=== PATIENT | female | born 1945 | race Caucasian/White ===

== ENCOUNTER 2022-04-07 06:37 | Day surgery (SDC) | payer MEDICARE, OTHER ==
[~2022-04-07] VITALS: Ht 162.6 cm; Wt 73.0 kg
[~2022-04-07 06:37] MED LIST: ASPI81CH PO; LOSA25 PO
[2022-04-07] MEDS ORDERED: Zoloft25 MG PO (06:58)
--- NOTE | 2022-04-07 08:49 | NUR ---
0845 PATIENT RETURNED FROM THE [facility] VIA BED, PLACED ON THE MONITOR. TR BAND IN PLACE AND SBAR RECEIVED FROM ZULY CONDE. NO HEAMTOMA, NO BLEEDING NOTED FROM THE RIGHT RADIAL. CALL LIGHT IN REACH. VVS. BRADYCARDIA NOTED.
--- NOTE | 2022-04-07 10:19 | NUR ---
1000 DAUGHTER AT THE BEDSIDE AND BREAKFAST TRAY SERVED. PATIENT SITTING UP IN THE BED. VVS. TR BAND STABLE. NO BLEEDING NO HEMATOMA NOTED.
--- NOTE | 2022-04-07 10:43 | NUR ---
BEGAN TAKING AIR FROM THE TR BAND. NO BLEEIDNG NOTED. DAUGHTER AT THE BEDSIDE.
--- NOTE | 2022-04-07 11:39 | NUR ---
PATIENT TR BAND OFF AND SITE CLEANED. CLOTH DOT PLACED. NO HEAMTOMA, NO BLEEDING. OFF MONITOR. UP AND DRESSED, TO THE [id number]. ALL BELONGINGS GATHERED. DAUGHTER AT THE BEDSIDE. REVIEWED DISCHARGE INSTRUCTIONS. ALL QUESTIONS ANSWERED.
--- NOTE | 2022-04-07 12:12 | NUR ---
PIV REMOVED AND PATIENT DISCHARGED HOME VIA WHEELCHAIR.
== END 2022-04-07 12:00 | disposition home or self-care (01) ==
LOC: MHTC 06:37
DX: I08.3 Combined rheumatic disorders of mitral, aortic and tricuspid valves (principal); I77.810 Thoracic aortic ectasia; I49.5 Sick sinus syndrome; I49.3 Ventricular premature depolarization; M31.6 Other giant cell arteritis
CPT/HCPCS: 93458; 99152; 99153; A9270; C1769; C1887; C1894; J1644; J2250; J3010; J7030; J7050; Q9967

== ENCOUNTER 2023-01-05 03:39 | Day surgery (SDC) | payer MEDICARE, OTHER ==
[~2023-01-05] VITALS: Wt 75.1 kg
[~2023-01-05 03:39] MED LIST changes: +Zoloft25 MG PO
[2023-01-05 10:17] VITALS: BP 118/98
[2023-01-05 11:24] LABS: BASOPHILS ABSOLUTE AUTO 0.04 K/mm3 (0.00-0.23); BASOPHILS PERCENT AUTO 0 % (0-2); EOSINOPHILS ABSOLUTE AUTO 0.11 K/mm3 (0.00-0.68); EOSINOPHILS PERCENT AUTO 1 % (0-6); Hematocrit 41.5 % (33.0-51.0); Hemoglobin 13.9 g/dL (11.5-16.0); IMMATURE GRAN ABSOLUTE AUTO 0.04 K/mm3 (0.00-0.10); IMMATURE GRAN PERCENT AUTO 0 % (0-1); LYMPHOCYTES PERCENT AUTO 36 % (21-46); MONOCYTES ABSOLUTE AUTO 0.84 K/mm3 (0.16-1.47); MONOCYTES PERCENT AUTO 9 % (4-13); Mean Corpuscular HGB 30.9 pg (26.0-34.0); Mean Corpuscular HGB Conc 33.5 g/dL (31.5-36.5); Mean Corpuscular Volume 92 fL (80-100); Mean Platelet Volume 10.9 fL (9.1-12.4); NEUTROPHILS ABSOLUTE AUTO 5.34 K/mm3 (1.96-9.15); NEUTROPHILS PERCENT AUTO 54 % (41-73); Platelet Count 220 K/mm3 (150-400); RDW Coefficient Variation 14.2 % (11.7-14.2); RDW Standard Deviation 48.4 fL (35.1-46.3); White Blood Cell Count 9.87 K/mm3 (4.00-11.30)
[2023-01-05 11:45] LABS: Alanine Aminotransfer (ALT/SGP 25 U/L (12-78); Albumin, Blood 3.5 g/dL (3.4-5.0); Albumin/Globulin Ratio 1.2 (0.8-1.8); Alk Phos 49 U/L (50-136); Anion Gap 7 mmol/L (6-16); Aspartate Aminotrans (AST/SGOT 22 U/L (12-37); Bilirubin, Total 0.5 mg/dL (0.1-1.0); Blood Urea Nitrogen 32 mg/dL (8-24); Bun/Creatinine Ratio 29.9 (12.0-20.0); C-REACTIVE PROTEIN, EXT RANGE <0.290 mg/dL (0.000-0.300); CO2, Blood 22 mmol/L (21-32); Chloride, Blood 112 mmol/L (98-108); Creatinine, Blood 1.07 mg/dL (0.40-1.00); Glomerular Filtration Rate 53 (60-); Glucose, Blood 89 mg/dL (70-99); Potassium, Blood 3.7 mmol/L (3.5-5.5); Sodium, Blood 141 mmol/L (136-145); Total Protein, Blood 6.5 g/dL (6.4-8.2)
[2023-01-05 11:53] VITALS: BP 136/75
== END 2023-01-05 11:55 | disposition home or self-care (01) ==
LOC: ATC 03:39
PROVIDERS: Internal Medicine Rheumatology
DX: M31.6 Other giant cell arteritis (principal); Z79.899 Other long term (current) drug therapy
CPT/HCPCS: 80053; 85025; 86140; 96365; J3262

== ENCOUNTER 2023-02-02 01:08 | Day surgery (SDC) | payer MEDICARE, OTHER ==
[~2023-02-02] VITALS: Wt 76.3 kg
[2023-02-02 10:00] VITALS: BP 131/89
== END 2023-02-02 11:18 | disposition home or self-care (01) ==
LOC: ATC 01:08
DX: M31.6 Other giant cell arteritis (principal); G45.9 Transient cerebral ischemic attack, unspecified
CPT/HCPCS: 96365; J3262

== ENCOUNTER 2023-03-02 02:30 | Day surgery (SDC) | payer MEDICARE, OTHER ==
[2023-03-02 09:42] VITALS: BP 144/91
== END 2023-03-02 11:01 | disposition home or self-care (01) ==
LOC: ATC 02:30
DX: M31.6 Other giant cell arteritis (principal); Z79.899 Other long term (current) drug therapy
CPT/HCPCS: 96365; J3262

== ENCOUNTER 2023-04-04 08:57 | Day surgery (SDC) | payer MEDICARE, OTHER ==
[~2023-04-04] VITALS: Wt 77.2 kg
[2023-04-04 10:15] VITALS: BP 138/85
[2023-04-04] MEDS ORDERED: PRED20 PO (11:01)
[2023-04-04 11:17] LABS: BASOPHILS ABSOLUTE AUTO 0.04 K/mm3 (0.00-0.23); BASOPHILS PERCENT AUTO 1 % (0-2); EOSINOPHILS ABSOLUTE AUTO 0.27 K/mm3 (0.00-0.68); EOSINOPHILS PERCENT AUTO 4 % (0-6); Hematocrit 42.7 % (33.0-51.0); Hemoglobin 14.6 g/dL (11.5-16.0); IMMATURE GRAN ABSOLUTE AUTO 0.04 K/mm3 (0.00-0.10); IMMATURE GRAN PERCENT AUTO 1 % (0-1); LYMPHOCYTES PERCENT AUTO 40 % (21-46); MONOCYTES ABSOLUTE AUTO 0.76 K/mm3 (0.16-1.47); MONOCYTES PERCENT AUTO 11 % (4-13); Mean Corpuscular HGB 31.8 pg (26.0-34.0); Mean Corpuscular HGB Conc 34.2 g/dL (31.5-36.5); Mean Corpuscular Volume 93 fL (80-100); Mean Platelet Volume 10.8 fL (9.1-12.4); NEUTROPHILS ABSOLUTE AUTO 2.98 K/mm3 (1.96-9.15); NEUTROPHILS PERCENT AUTO 44 % (41-73); Platelet Count 175 K/mm3 (150-400); RDW Coefficient Variation 14.3 % (11.7-14.2); RDW Standard Deviation 48.7 fL (35.1-46.3); Red Blood Cell Count 4.59 M/mm3 (3.80-5.20); White Blood Cell Count 6.79 K/mm3 (4.00-11.30)
[2023-04-04 11:52] LABS: Alanine Aminotransfer (ALT/SGP 39 U/L (12-78); Albumin, Blood 3.9 g/dL (3.4-5.0); Albumin/Globulin Ratio 1.6 (0.8-1.8); Alk Phos 46 U/L (50-136); Anion Gap 3 mmol/L (6-16); Aspartate Aminotrans (AST/SGOT 29 U/L (12-37); Bilirubin, Total 0.7 mg/dL (0.1-1.0); Blood Urea Nitrogen 30 mg/dL (8-24); Bun/Creatinine Ratio 27.3 (12.0-20.0); C-REACTIVE PROTEIN, EXT RANGE <0.290 mg/dL (0.000-0.300); CO2, Blood 25 mmol/L (21-32); Calcium, Blood 9.4 mg/dL (8.5-10.1); Chloride, Blood 111 mmol/L (98-108); Globulin, Blood 2.4 g/dL (2.2-4.0); Glomerular Filtration Rate 51 (60-); Glucose, Blood 99 mg/dL (70-99); Potassium, Blood 3.9 mmol/L (3.5-5.5); Sodium, Blood 139 mmol/L (136-145); Total Protein, Blood 6.3 g/dL (6.4-8.2)
== END 2023-04-04 12:35 | disposition home or self-care (01) ==
LOC: ATC 08:57
PROVIDERS: Internal Medicine Rheumatology
DX: M31.6 Other giant cell arteritis (principal); Z86.73 Personal history of transient ischemic attack (TIA), and cerebral infarction without residual deficits
CPT/HCPCS: 80053; 85025; 86140; 96365; J3262

== ENCOUNTER 2023-05-31 04:51 | Day surgery (SDC) | payer MEDICARE, OTHER ==
[~2023-05-31 04:51] MED LIST changes: +PRED20 PO
[2023-05-31 10:03] VITALS: BP 166/98
[2023-05-31] MEDS ORDERED: PRED5 PO (10:07)
[2023-05-31] MEDS ORDERED: METOPROLOL TART25 MG PO (10:07)
[2023-05-31] MEDS ORDERED: FOSAMAX70 MG PO (10:08)
[2023-05-31] MEDS ORDERED: ATOR40TA PO (10:09)
[2023-05-31] MEDS ORDERED: ACTEMRA IV (15:32)
== END 2023-05-31 11:31 | disposition home or self-care (01) ==
LOC: ATC 04:51
DX: M31.6 Other giant cell arteritis (principal); Z79.899 Other long term (current) drug therapy
CPT/HCPCS: 96365; J3262

== ENCOUNTER 2024-02-13 02:50 | Day surgery (SDC) | payer MEDICARE, OTHER ==
[~2024-02-13 02:50] MED LIST changes: +ACTEMRA IV; +ATOR40TA PO; +FOSAMAX70 MG PO; +METOPROLOL TART25 MG PO; +PRED5 PO
[2024-02-13] MEDS ORDERED: TOCILIZUMAB IV SCH (06:00)
[2024-02-13] MEDS ORDERED: NS IV SCH (06:00)
[2024-02-13 16:06] VITALS: BP 151/82
[2024-02-13 16:31] LABS: BASOPHILS ABSOLUTE AUTO 0.04 K/mm3 (0.00-0.23); BASOPHILS PERCENT AUTO 1 % (0-2); EOSINOPHILS ABSOLUTE AUTO 0.15 K/mm3 (0.00-0.68); EOSINOPHILS PERCENT AUTO 3 % (0-6); Hematocrit 39.2 % (33.0-51.0); Hemoglobin 13.2 g/dL (11.5-16.0); IMMATURE GRAN ABSOLUTE AUTO 0.01 K/mm3 (0.00-0.10); IMMATURE GRAN PERCENT AUTO 0 % (0-1); LYMPHOCYTES ABSOLUTE AUTO 1.32 K/mm3 (0.84-5.20); LYMPHOCYTES PERCENT AUTO 25 % (21-46); MONOCYTES ABSOLUTE AUTO 0.43 K/mm3 (0.16-1.47); MONOCYTES PERCENT AUTO 8 % (4-13); Mean Corpuscular HGB 31.9 pg (26.0-34.0); Mean Corpuscular HGB Conc 33.7 g/dL (31.5-36.5); Mean Corpuscular Volume 95 fL (80-100); Mean Platelet Volume 11.2 fL (9.1-12.4); NEUTROPHILS PERCENT AUTO 64 % (41-73); Platelet Count 160 K/mm3 (150-400); RDW Standard Deviation 45.1 fL (35.1-46.3); Red Blood Cell Count 4.14 M/mm3 (3.80-5.20); White Blood Cell Count 5.35 K/mm3 (4.00-11.30)
[2024-02-13 16:45] LABS: C-REACTIVE PROTEIN, EXT RANGE <0.290 mg/dL (0.000-0.300)
[2024-02-13 16:51] LABS: Alanine Aminotransfer (ALT/SGP 26 U/L (12-78); Albumin, Blood 3.9 g/dL (3.4-5.0); Albumin/Globulin Ratio 1.5 (0.8-1.8); Alk Phos 48 U/L (50-136); Anion Gap 10 mmol/L (3-11); Aspartate Aminotrans (AST/SGOT 31 U/L (12-37); Bilirubin, Total 0.7 mg/dL (0.1-1.0); Blood Urea Nitrogen 38 mg/dL (8-24); Bun/Creatinine Ratio 35.5 (12.0-20.0); CO2, Blood 24 mmol/L (21-32); Calcium, Blood 9.4 mg/dL (8.5-10.1); Chloride, Blood 109 mmol/L (98-108); Creatinine, Blood 1.07 mg/dL (0.40-1.00); Globulin, Blood 2.6 g/dL (2.2-4.0); Glomerular Filtration Rate 53 (60-); Glucose, Blood 129 mg/dL (70-99); Potassium, Blood 4.2 mmol/L (3.5-5.5); Sodium, Blood 139 mmol/L (136-145); Total Protein, Blood 6.5 g/dL (6.4-8.2)
== END 2024-02-13 17:32 | disposition home or self-care (01) ==
LOC: ATC 02:50
PROVIDERS: Internal Medicine Rheumatology
DX: M31.6 Other giant cell arteritis (principal)
CPT/HCPCS: 80053; 85025; 86140; 96365; J3262

== ENCOUNTER 2024-04-09 02:14 | Day surgery (SDC) | payer MEDICARE, OTHER ==
[~2024-04-09] VITALS: Wt 79.8 kg
[2024-04-09] MEDS ORDERED: TOCILIZUMAB IV SCH (06:00)
[2024-04-09] MEDS ORDERED: NS IV SCH (06:00)
[2024-04-09 14:29] VITALS: BP 145/90
== END 2024-04-09 16:15 | disposition home or self-care (01) ==
LOC: ATC 02:14
DX: M31.6 Other giant cell arteritis (principal); Z79.899 Other long term (current) drug therapy; Z79.82 Long term (current) use of aspirin; Z79.52 Long term (current) use of systemic steroids
CPT/HCPCS: 96365; J3262

== ENCOUNTER 2024-05-07 03:35 | Day surgery (SDC) | payer MEDICARE, OTHER ==
[~2024-05-07] VITALS: Wt 79.6 kg
[2024-05-07] MEDS ORDERED: TOCILIZUMAB IV SCH (06:00)
[2024-05-07] MEDS ORDERED: NS IV SCH (06:00)
[2024-05-07 14:37] VITALS: BP 168/77
[2024-05-07 15:05] LABS: BASOPHILS ABSOLUTE AUTO 0.02 K/mm3 (0.00-0.23); BASOPHILS PERCENT AUTO 0 % (0-2); EOSINOPHILS ABSOLUTE AUTO 0.06 K/mm3 (0.00-0.68); EOSINOPHILS PERCENT AUTO 1 % (0-6); Hematocrit 39.8 % (33.0-51.0); Hemoglobin 13.5 g/dL (11.5-16.0); IMMATURE GRAN ABSOLUTE AUTO 0.01 K/mm3 (0.00-0.10); IMMATURE GRAN PERCENT AUTO 0 % (0-1); LYMPHOCYTES ABSOLUTE AUTO 0.95 K/mm3 (0.84-5.20); LYMPHOCYTES PERCENT AUTO 19 % (21-46); MONOCYTES PERCENT AUTO 6 % (4-13); Mean Corpuscular HGB 32.1 pg (26.0-34.0); Mean Corpuscular HGB Conc 33.9 g/dL (31.5-36.5); Mean Corpuscular Volume 95 fL (80-100); Mean Platelet Volume 11.4 fL (9.1-12.4); NEUTROPHILS ABSOLUTE AUTO 3.65 K/mm3 (1.96-9.15); NEUTROPHILS PERCENT AUTO 73 % (41-73); Platelet Count 155 K/mm3 (150-400); RDW Coefficient Variation 12.8 % (11.7-14.2); RDW Standard Deviation 44.5 fL (35.1-46.3); Red Blood Cell Count 4.21 M/mm3 (3.80-5.20); White Blood Cell Count 4.99 K/mm3 (4.00-11.30)
[2024-05-07 15:18] LABS: C-REACTIVE PROTEIN, EXT RANGE <0.290 mg/dL (0.000-0.300)
[2024-05-07 15:20] LABS: Alanine Aminotransfer (ALT/SGP 28 U/L (12-78); Albumin, Blood 3.8 g/dL (3.4-5.0); Albumin/Globulin Ratio 1.4 (0.8-1.8); Alk Phos 48 U/L (50-136); Anion Gap 9 mmol/L (3-11); Aspartate Aminotrans (AST/SGOT 28 U/L (12-37); Blood Urea Nitrogen 23 mg/dL (8-24); Bun/Creatinine Ratio 26.4 (12.0-20.0); CO2, Blood 25 mmol/L (21-32); Calcium, Blood 8.9 mg/dL (8.5-10.1); Chloride, Blood 107 mmol/L (98-108); Creatinine, Blood 0.87 mg/dL (0.40-1.00); Globulin, Blood 2.7 g/dL (2.2-4.0); Glomerular Filtration Rate 67 (60-); Glucose, Blood 118 mg/dL (70-99); Potassium, Blood 4.1 mmol/L (3.5-5.5); Sodium, Blood 137 mmol/L (136-145); Total Protein, Blood 6.5 g/dL (6.4-8.2)
[2024-05-10 02:11] LABS: QUANTIFERON MITOGEN MINUS NIL 9.98 IU/mL; QUANTIFERON NIL 0.02 IU/mL
== END 2024-05-07 15:52 | disposition home or self-care (01) ==
LOC: ATC 03:35
PROVIDERS: Internal Medicine Rheumatology
DX: M31.6 Other giant cell arteritis (principal); Z79.899 Other long term (current) drug therapy
CPT/HCPCS: 80053; 85025; 85651; 86140; 86480; 96365; J3262

== ENCOUNTER 2024-06-04 02:39 | Day surgery (SDC) | payer MEDICARE, OTHER ==
[2024-06-04] MEDS ORDERED: TOCILIZUMAB IV SCH (06:00)
[2024-06-04] MEDS ORDERED: NS IV SCH (06:00)
[2024-06-04 15:00] VITALS: BP 155/77
== END 2024-06-04 16:42 | disposition home or self-care (01) ==
LOC: ATC 02:39
DX: M31.6 Other giant cell arteritis (principal); Z79.83 Long term (current) use of bisphosphonates; Z79.52 Long term (current) use of systemic steroids; Z79.899 Other long term (current) drug therapy
CPT/HCPCS: 96365; J3262

== ENCOUNTER 2024-07-02 04:24 | Day surgery (SDC) | payer MEDICARE, OTHER ==
[2024-07-02] MEDS ORDERED: NS IV SCH (06:00)
[2024-07-02] MEDS ORDERED: TOCILIZUMAB IV SCH (06:00)
[2024-07-02 14:20] VITALS: BP 167/88
== END 2024-07-02 15:45 | disposition home or self-care (01) ==
LOC: ATC 04:24
DX: M31.6 Other giant cell arteritis (principal); Z79.899 Other long term (current) drug therapy
CPT/HCPCS: 96365; J3262

== ENCOUNTER 2024-07-30 01:03 | Day surgery (SDC) | payer MEDICARE, OTHER ==
[2024-07-30] MEDS ORDERED: NS IV SCH (06:00)
[2024-07-30] MEDS ORDERED: TOCILIZUMAB IV SCH (06:00)
[2024-07-30 15:00] VITALS: BP 162/69
[2024-07-30 15:46] LABS: BASOPHILS ABSOLUTE AUTO 0.04 K/mm3 (0.00-0.23); BASOPHILS PERCENT AUTO 1 % (0-2); EOSINOPHILS ABSOLUTE AUTO 0.23 K/mm3 (0.00-0.68); EOSINOPHILS PERCENT AUTO 4 % (0-6); Hematocrit 39.4 % (33.0-51.0); Hemoglobin 13.4 g/dL (11.5-16.0); IMMATURE GRAN ABSOLUTE AUTO 0.01 K/mm3 (0.00-0.10); IMMATURE GRAN PERCENT AUTO 0 % (0-1); LYMPHOCYTES ABSOLUTE AUTO 1.83 K/mm3 (0.84-5.20); LYMPHOCYTES PERCENT AUTO 33 % (21-46); MONOCYTES ABSOLUTE AUTO 0.64 K/mm3 (0.16-1.47); MONOCYTES PERCENT AUTO 12 % (4-13); Mean Corpuscular HGB 32.4 pg (26.0-34.0); Mean Corpuscular Volume 95 fL (80-100); Mean Platelet Volume 11.3 fL (9.1-12.4); NEUTROPHILS ABSOLUTE AUTO 2.83 K/mm3 (1.96-9.15); NEUTROPHILS PERCENT AUTO 51 % (41-73); Platelet Count 157 K/mm3 (150-400); Red Blood Cell Count 4.13 M/mm3 (3.80-5.20); White Blood Cell Count 5.58 K/mm3 (4.00-11.30)
[2024-07-30 16:12] LABS: C-REACTIVE PROTEIN, EXT RANGE <0.290 mg/dL (0.000-0.300)
[2024-07-30 16:14] LABS: Alanine Aminotransfer (ALT/SGP 31 U/L (12-78); Albumin, Blood 3.5 g/dL (3.4-5.0); Albumin/Globulin Ratio 1.3 (0.8-1.8); Alk Phos 51 U/L (50-136); Anion Gap 8 mmol/L (3-11); Aspartate Aminotrans (AST/SGOT 24 U/L (12-37); Blood Urea Nitrogen 20 mg/dL (8-24); CO2, Blood 26 mmol/L (21-32); Calcium, Blood 8.8 mg/dL (8.5-10.1); Chloride, Blood 109 mmol/L (98-108); Creatinine, Blood 1.05 mg/dL (0.40-1.00); Globulin, Blood 2.6 g/dL (2.2-4.0); Glomerular Filtration Rate 54 (60-); Glucose, Blood 87 mg/dL (70-99); Potassium, Blood 4.1 mmol/L (3.5-5.5); Sodium, Blood 139 mmol/L (136-145); Total Protein, Blood 6.1 g/dL (6.4-8.2)
== END 2024-07-30 16:48 | disposition home or self-care (01) ==
LOC: ATC 01:03
PROVIDERS: Internal Medicine Rheumatology
DX: M31.6 Other giant cell arteritis (principal); Z79.83 Long term (current) use of bisphosphonates; Z79.52 Long term (current) use of systemic steroids; Z79.899 Other long term (current) drug therapy
CPT/HCPCS: 80053; 85025; 85651; 86140; 96365; J3262

== ENCOUNTER 2024-08-27 11:41 | Day surgery (SDC) | payer MEDICARE, OTHER ==
[~2024-08-27 11:41] MED LIST changes: +NS IV SCH; +TOCILIZUMAB IV SCH
[2024-08-27 13:25] VITALS: BP 148/76
[2024-08-27 13:40] LABS: BASOPHILS ABSOLUTE AUTO 0.04 K/mm3 (0.00-0.23); BASOPHILS PERCENT AUTO 1 % (0-2); EOSINOPHILS ABSOLUTE AUTO 0.21 K/mm3 (0.00-0.68); EOSINOPHILS PERCENT AUTO 4 % (0-6); Hematocrit 39.4 % (33.0-51.0); Hemoglobin 13.5 g/dL (11.5-16.0); IMMATURE GRAN ABSOLUTE AUTO 0.02 K/mm3 (0.00-0.10); IMMATURE GRAN PERCENT AUTO 0 % (0-1); LYMPHOCYTES ABSOLUTE AUTO 2.17 K/mm3 (0.84-5.20); LYMPHOCYTES PERCENT AUTO 39 % (21-46); MONOCYTES ABSOLUTE AUTO 0.69 K/mm3 (0.16-1.47); MONOCYTES PERCENT AUTO 12 % (4-13); Mean Corpuscular HGB 32.6 pg (26.0-34.0); Mean Corpuscular HGB Conc 34.3 g/dL (31.5-36.5); Mean Corpuscular Volume 95 fL (80-100); Mean Platelet Volume 10.2 fL (9.1-12.4); NEUTROPHILS ABSOLUTE AUTO 2.43 K/mm3 (1.96-9.15); NEUTROPHILS PERCENT AUTO 44 % (41-73); Platelet Count 160 K/mm3 (150-400); RDW Coefficient Variation 13.3 % (11.7-14.2); RDW Standard Deviation 46.7 fL (35.1-46.3); Red Blood Cell Count 4.14 M/mm3 (3.80-5.20); White Blood Cell Count 5.56 K/mm3 (4.00-11.30)
[2024-08-27 14:03] LABS: Alanine Aminotransfer (ALT/SGP 29 U/L (12-78); Albumin/Globulin Ratio 1.8 (0.8-1.8); Alk Phos 45 U/L (50-136); Anion Gap 9 mmol/L (3-11); Aspartate Aminotrans (AST/SGOT 26 U/L (12-37); Bilirubin, Total 0.8 mg/dL (0.1-1.0); Blood Urea Nitrogen 36 mg/dL (8-24); Bun/Creatinine Ratio 35.6 (12.0-20.0); C-REACTIVE PROTEIN, EXT RANGE <0.290 mg/dL (0.000-0.300); CO2, Blood 26 mmol/L (21-32); Calcium, Blood 8.8 mg/dL (8.5-10.1); Chloride, Blood 110 mmol/L (98-108); Creatinine, Blood 1.01 mg/dL (0.40-1.00); Globulin, Blood 2.2 g/dL (2.2-4.0); Glomerular Filtration Rate 56 (60-); Glucose, Blood 86 mg/dL (70-99); Potassium, Blood 3.9 mmol/L (3.5-5.5); Sodium, Blood 141 mmol/L (136-145); Total Protein, Blood 6.2 g/dL (6.4-8.2)
== END 2024-08-27 15:21 | disposition home or self-care (01) ==
LOC: ATC 11:41
PROVIDERS: Internal Medicine Rheumatology
DX: M31.6 Other giant cell arteritis (principal); Z79.83 Long term (current) use of bisphosphonates; Z79.52 Long term (current) use of systemic steroids; Z79.899 Other long term (current) drug therapy
CPT/HCPCS: 80053; 85025; 86140; 96365; J3262

== ENCOUNTER 2024-09-25 01:46 | Day surgery (SDC) | payer MEDICARE, OTHER ==
[~2024-09-25] VITALS: Wt 77.1 kg
[~2024-09-25 01:46] MED LIST changes: -NS IV SCH; -TOCILIZUMAB IV SCH
[2024-09-25] MEDS ORDERED: NS IV SCH (06:00)
[2024-09-25] MEDS ORDERED: TOCILIZUMAB IV SCH (06:00)
[2024-09-25 14:58] VITALS: BP 148/81
[2024-09-25] MEDS ORDERED: QUET25 PO (15:08)
== END 2024-09-25 16:25 | disposition home or self-care (01) ==
LOC: ATC 01:46
DX: M31.6 Other giant cell arteritis (principal); M81.0 Age-related osteoporosis without current pathological fracture; Z79.899 Other long term (current) drug therapy
CPT/HCPCS: 96365; J3262

== ENCOUNTER 2024-10-23 04:46 | Day surgery (SDC) | payer MEDICARE, OTHER ==
[~2024-10-23] VITALS: Wt 79.3 kg
[~2024-10-23 04:46] MED LIST changes: +QUET25 PO
[2024-10-23] MEDS ORDERED: NS IV SCH (06:00)
[2024-10-23] MEDS ORDERED: TOCILIZUMAB IV SCH (06:00)
[2024-10-23 14:02] VITALS: BP 158/84
== END 2024-10-23 15:48 | disposition home or self-care (01) ==
LOC: ATC 04:46
DX: M31.6 Other giant cell arteritis (principal)
CPT/HCPCS: 96365; J3262

== ENCOUNTER 2024-11-21 02:56 | Day surgery (SDC) | payer MEDICARE, OTHER ==
[2024-11-21] MEDS ORDERED: NS IV SCH (06:00)
[2024-11-21] MEDS ORDERED: TOCILIZUMAB IV SCH (06:00)
[2024-11-21 14:16] VITALS: BP 138/74
[2024-11-21 14:40] LABS: BASOPHILS ABSOLUTE AUTO 0.03 K/mm3 (0.00-0.23); BASOPHILS PERCENT AUTO 1 % (0-2); EOSINOPHILS ABSOLUTE AUTO 0.28 K/mm3 (0.00-0.68); EOSINOPHILS PERCENT AUTO 5 % (0-6); Hematocrit 39.5 % (33.0-51.0); Hemoglobin 13.9 g/dL (11.5-16.0); IMMATURE GRAN ABSOLUTE AUTO 0.01 K/mm3 (0.00-0.10); IMMATURE GRAN PERCENT AUTO 0 % (0-1); LYMPHOCYTES PERCENT AUTO 34 % (21-46); MONOCYTES ABSOLUTE AUTO 0.57 K/mm3 (0.16-1.47); MONOCYTES PERCENT AUTO 10 % (4-13); Mean Corpuscular HGB 33.3 pg (26.0-34.0); Mean Corpuscular HGB Conc 35.2 g/dL (31.5-36.5); Mean Corpuscular Volume 95 fL (80-100); Mean Platelet Volume 10.7 fL (9.1-12.4); NEUTROPHILS ABSOLUTE AUTO 2.92 K/mm3 (1.96-9.15); NEUTROPHILS PERCENT AUTO 50 % (41-73); Platelet Count 155 K/mm3 (150-400); RDW Coefficient Variation 13.2 % (11.7-14.2); RDW Standard Deviation 45.5 fL (35.1-46.3); Red Blood Cell Count 4.18 M/mm3 (3.80-5.20); White Blood Cell Count 5.81 K/mm3 (4.00-11.30)
[2024-11-21 15:09] LABS: C-REACTIVE PROTEIN, EXT RANGE <0.290 mg/dL (0.000-0.300); Very Low Density Lipoprot Chol 27 mg/dL (6-32)
[2024-11-21 15:10] LABS: Alanine Aminotransfer (ALT/SGP 28 U/L (12-78); Albumin, Blood 3.8 g/dL (3.4-5.0); Albumin/Globulin Ratio 1.5 (0.8-1.8); Alk Phos 52 U/L (50-136); Anion Gap 11 mmol/L (3-11); Aspartate Aminotrans (AST/SGOT 29 U/L (12-37); Blood Urea Nitrogen 24 mg/dL (8-24); Bun/Creatinine Ratio 27.4 (12.0-20.0); CHOL/HDL RATIO 2.7; CO2, Blood 23 mmol/L (21-32); Calcium, Blood 8.8 mg/dL (8.5-10.1); Chloride, Blood 108 mmol/L (98-108); Cholesterol 151 mg/dL (50-200); Creatinine, Blood 0.88 mg/dL (0.40-1.00); Globulin, Blood 2.6 g/dL (2.2-4.0); Glomerular Filtration Rate 66 (60-); Glucose, Blood 102 mg/dL (70-99); HDL Cholesterol 56 mg/dL (>39); LDL/HDL RATIO 1.2; Low Density Lipoprotein Chol 68 mg/dL (0-110); Potassium, Blood 3.8 mmol/L (3.5-5.5); Sodium, Blood 138 mmol/L (136-145); Total Protein, Blood 6.4 g/dL (6.4-8.2); Triglycerides 136 mg/dL (30-160)
== END 2024-11-21 15:50 | disposition home or self-care (01) ==
LOC: ATC 02:56
PROVIDERS: Internal Medicine Rheumatology
DX: M31.6 Other giant cell arteritis (principal); Z79.899 Other long term (current) drug therapy; Z79.82 Long term (current) use of aspirin; Z79.52 Long term (current) use of systemic steroids; Z68.30 Body mass index [BMI] 30.0-30.9, adult
CPT/HCPCS: 80053; 80061; 85025; 86140; 96365; J3262